=== PATIENT | male | born 1965 | race Caucasian/White ===

== ENCOUNTER 2020-05-25 18:13 | Day surgery (SDCO) | payer OTHER ==
[~2020-05-25 18:13] MED LIST: ASPIRIN CHEWABL81 MG PO; BREO ELLIPTA 11 EACH INH; COLACE100 MG PO; FLEXERIL5 MG PO; FLOMAX0.4 MG PO; INCRUSE ELLI62.5 MCG INH; LIPITOR20 MG PO; NORVASC5 MG PO; VENTOLIN (2.5 MG/3 M INH; VITAMIN D31000 UNIT PO
[2020-05-25 18:43] LABS: BASOPHIL 0.7 % (0-2); EOSINOPHIL 2.4 % (0-5); HCT 48.6 % (42.0-52.0); HGB 16.1 g/dl (13.2-18.0); LYMPHOCYTE 22.6 % (15-48); MCH 30.4 pg (25.0-31.0); MCHC 33.1 g/dL (32.0-36.0); MCV 91.9 fL (78.0-100.0); MONOCYTE 6.8 % (0-12); MPV 10.1 fL (6.0-9.5); NEUTROPHIL 67.4 % (41-80); NRBC 0; PLT 260 K/uL (150-400); RBC 5.29 M/uL (4.70-6.00); RDW 13.3 % (11.5-14.0)
[2020-05-25 18:54] LABS: ALBUMIN 3.9 g/dL (3.4-5.0); BILIRUBIN - TOTAL 0.4 mg/dL (0.2-1.0); BUN/CREAT RATIO (CALC) 10.5 RATIO; CREATININE 0.86 mg/dL (0.67-1.17); GLOBULIN (CALCULATION) 3.7 g/dL; POTASSIUM 3.4 mmol/L (3.5-5.1); TOTAL PROTEIN 7.6 g/dL (6.4-8.2)
[2020-05-25 18:57] LABS: INR 0.98 (0.9-1.2); PROTHROMBIN TIME 12.3 SECONDS (11.4-13.6)
[2020-05-25 18:59] LABS: D-DIMER 0.32 ug/mLFEU (0.00-0.41)
[2020-05-25 19:22] LABS: CORONAVIRUS 2019 SARS-COV-2 NEGATIVE (NEGATIVE); INFLUENZA A NAA NEGATIVE (NEGATIVE)
[2020-05-26 05:05] LABS: BASOPHIL 0.5 % (0-2); EOSINOPHIL 2.2 % (0-5); HCT 43.9 % (42.0-52.0); HGB 14.5 g/dl (13.2-18.0); LYMPHOCYTE 22.8 % (15-48); MCH 30.2 pg (25.0-31.0); MCV 91.5 fL (78.0-100.0); MONOCYTE 8.3 % (0-12); MPV 10.1 fL (6.0-9.5); NEUTROPHIL 65.6 % (41-80); NRBC 0; PLT 219 K/uL (150-400); RDW 13.3 % (11.5-14.0); WBC 6.3 K/uL (4.0-10.5)
[2020-05-26 05:29] LABS: BUN/CREAT RATIO (CALC) 10.6 RATIO; CREATININE 0.85 mg/dL (0.67-1.17); POTASSIUM 3.6 mmol/L (3.5-5.1)
[2020-05-26] MEDS ORDERED: NITROGLYCERIN0.4 MG SL (09:30)
--- NOTE | 2020-05-26 10:41 | NUR ---
PT DISCHARGED AT 1037 VIA AMBULATORY, SPOUSE AT BEDSIDE. PT IV REMOVED, CATHETER INTACT, TELE REMOVED. PT GIVEN INSTRUCTIONS ABOUT NEW MEDICATION NITRO, HOW TO USE, HOW IT WORKS AND EXPLAINED ROUTE AND INSTRUCTIONS. SENT TO [facility]. WENT OVER SIDE EFFECTS WITH PT AND PT AND SPOUSE BOTH VERBALIZE UNDERSTANDING.
== END 2020-05-26 10:37 | disposition home or self-care (01) ==
LOC: FER 18:13 → FTCU 19:58
PROVIDERS: Emergency Medicine; Nurse Practitioner; ADMIT Internal Medicine
DX: R07.2 Precordial pain (principal); I25.110 Atherosclerotic heart disease of native coronary artery with unstable angina pectoris; J44.9 Chronic obstructive pulmonary disease, unspecified; I10 Essential (primary) hypertension; N40.0 Benign prostatic hyperplasia without lower urinary tract symptoms; G47.30 Sleep apnea, unspecified; E55.9 Vitamin D deficiency, unspecified; E66.3 Overweight; Z68.33 Body mass index [BMI] 33.0-33.9, adult; Z87.891 Personal history of nicotine dependence; Z79.82 Long term (current) use of aspirin; Z79.899 Other long term (current) drug therapy; Z88.1 Allergy status to other antibiotic agents; Z88.2 Allergy status to sulfonamides; Z20.822 Contact with and (suspected) exposure to COVID-19
CPT/HCPCS: 36415; 71045; 80048; 80053; 80061; 84484; 85025; 85379; 85610; 93005; G0378; J1650; U0002